=== PATIENT | male | born 1960 | race Caucasian/White ===

== ENCOUNTER 2025-07-05 06:54 | Inpatient (IN) | payer MEDICAID, OTHER ==
[~2025-07-05] VITALS: Ht 182.9 cm; Wt 81.1 kg
--- NOTE | 2025-07-05 07:24 | ED.PDOC ---
GI ASSESSMENT HPI Comments 65 year old male with PMHx ulcerative colitis presents to the ED with a chief complaint of rectal bleeding onset 1 month. Patient states for the past month, he has been experiencing diarrhea with bright red blood as well as dizziness, nausea, vomiting, fatigue. He has had 6 ED [place] the past month[place] [facility] [place] [facility], has been discharged home, advised to follow up with GI specialist, does not have appointment for the next few months. He noticed in the past month he has lost about 40 lbs, symptoms have worsened. Denies fever, chills, headache, blurred vision, numbness/tingling, dysuria, hematuria. No other symptoms or modifying factors present at this time. Chief Complaint: GI Bleed Time Seen by MD: 07:15 Reviewed Notes: Medications, Allergies Allergies: Coded Allergies: NO KNOWN ALLERGIES (Unverified , 07/05/25) Information Source: Patient Mode of Arrival: Ambulatory Timing: Months Duration: Since onset Prehospital treatment: None Quality: Colicky Stool: Blood Streaked, Loose Severity: Moderate Recent: None Recent Hx of: Ulcer Disease Pain Location: Diffuse Associated sign and symptoms: Nausea, Vomiting, Diarrhea, Abdominal Pain, Blood in Stool Past Medical History Past Medical History (Other): ulcerative colitis Family History Family History: Reviewed,noncontributory to illness, No family hx of Cancer, No family hx of DM, No family hx of Heart mercedes, No family hx of HTN, No family hx ofKidney mercedes, No family hx of Liver mercedes, No family hx of Lung mercedes, No family hx of Stroke Social History Smoker: Non-Smoker Alcohol: Denies ETOH Use Drugs: Denies Drug Use Lives In: Home Constitutional: reports: fatigue; denies: chills, diaphoresis, fever, malaise, sweats, weakness, others EENTM: denies: blurred vision, double vision, ear bleeding, ear discharge, ear drainage, ear pain, ear ringing, eye pain, eye redness, hearing loss, mouth pain, mouth swelling, nasal discharge, nose bleeding, nose congestion, nose pain, photophobia, tearing, throat pain, throat swelling, voice changes, others Respiratory: denies: cough, hemoptysis, orthopnea, SOB at rest, shortness of breath, SOB with excertion, stridor, wheezing, others Cardiovascular: denies: chest pain, dizzy spells, diaphoresis, Dyspnea on exertion, edema, irregular heart beat, left arm pain, lightheadedness, palpitations, PND, syncope, others Gastrointestinal: reports: abdominal pain, nausea, rectal bleeding, vomiting; denies: abdomen distended, blood streaked bowels, constipated, diarrhea, dysphagia, difficulty swallowing, hematemesis, melena, poor appetite, poor fluid intake, rectal pain, others Genitourinary: denies: burning, dysuria, flank pain, frequency, hematuria, incontinence, penile discharge, penile sore, pain, testicle pain, testicle swelling, urgency, others Neurological: reports: dizziness; denies: fainting, headache, left sided numbness, left sided weakness, numbness, paresthesia, pre-existing deficit, right sided numbness, right sided weakness, seizure, speech problems, tingling, tremors, weakness, others Musculoskeletal: denies: back pain, gout, joint pain, joint swelling, muscle pain, muscle stiffness, neck pain, others Integumetry: denies: bruises, change in color, change in hair/nails, dryness, laceration, lesions, lumps, rash, wounds, others Allergic/Immunocompromised: denies: Difficulty Healing, Frequent Infections, Hives, Itching, others Hematologic/Lymphatic: denies: anemia, blood clots, easy bleeding, easy bruising, swollen glands, others Endocrine: denies: excessive hunger, excessive sweating, excessive thirst, excessive urination, flushing, intolerance to cold, intolerance to heat, unexplained weight gain, unexplained weight loss, others Psychiatric: denies: anxiety, bipolar disorder, depression, hopeless, panic disorder, schizophrenia, sleepless, suicidal, others All Other Systems: Reviewed and Negative Physical Exam General Appearance: Normal, Other (ashy appearing) HEENT: Normal ENT Inspection, Pharynx Normal, TMs Normal Neck: Full Range of Motion, Non-Tender, Normal, Normal Inspection Respiratory: Chest Non-Tender, Lungs Clear, No Accessory Muscle Use, No Respiratory Distress, Normal Breath Sounds Cardiovascular: No Edema, No JVD, No Murmur, No Gallop, Normal Peripheral Pulses, Regular Rate/Rhythm Breast Exam: Deferred Gastrointestinal: No Organomegaly, Non Tender, No Pulsatile Mass, Normal Bowel Sounds, Soft Genitalia: Deferred Pelvic: Deferred Rectal: Deferred Extremities: No calf tenderness, Normal capillary refill, Normal inspection, Normal range of motion, Non-tender, No pedal edema Musculoskeletal : Apperance: Normal Neurologic: Alert, 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 Was a procedure done?: No GI differential Dx Differential Diagnosis: Diverticular disease, GI hemorrhage, Esophageal Varicies, Stress Ulcer X-Ray, Labs, Meds, VS Vital Signs Date Time Temp Pulse Resp B/P (MAP) Pulse Ox O2 Delivery O2 Flow Rate FiO2 07/05/25 07:58 102 16 98 Room Air* 0 21 07/05/25 07:57 98.0 113 16 136/90 (105) 96 98.0 07/05/25 06:56 98.3 106 20 117/82 96 98.3 Lab Test 07/05/25 07:36 Range/Units White Blood Count 15.7 H 4.4-10.8 10^3/uL Red Blood Count 3.62 L 4.5-5.90 10^6/uL Hemoglobin 10.8 L 13.5-17.5 g/dL Hematocrit 31.9 L 41.0-53.0 % Mean Corpuscular Volume 88.0 80.0-100.0 fL Mean Corpuscular Hemoglobin 29.8 28.0-32.0 pg Mean Corpuscular Hemoglobin Concent 33.9 32.0-36.0 g/dL Red Cell Distribution Width 14.0 11.8-14.3 % Platelet Count 636 H 140-450 10^3/uL Mean Platelet Volume 6.0 L 6.9-10.8 fL Neutrophils (%) (Auto) 64.6 37.0-80.0 % Lymphocytes (%) (Auto) 16.2 10.0-50.0 % Monocytes (%) (Auto) 14.5 H 0.0-12.0 % Eosinophils (%) (Auto) 4.3 0.0-7.0 % Basophils (%) (Auto) 0.4 0.0-2.0 % Neutrophils # (Auto) 10.1 H 1.6-8.6 10 ^3/uL Lymphocytes # (Auto) 2.5 0.4-5.4 10 ^3/uL Monocytes # (Auto) 2.3 H 0-1.3 10 ^3/uL Eosinophils # (Auto) 0.7 0-0.8 10 ^3/uL Basophils # (Auto) 0.1 0-0.2 10 ^3/uL Nucleated Red Blood Cells 0.1 % Sodium Level 133 L 136-145 mmol/L Potassium Level 4.0 3.5-5.1 mmol/L Chloride Level 97 L 98-107 mmol/L Carbon Dioxide Level 27 20-31 mmol/L Anion Gap 9 5-15 Blood Urea Nitrogen 7 L 9-23 mg/dL Creatinine 1.00 0.700-1.30 mg/dL Glomerular Filtration Rate Calc 84 >90 mL/min BUN/Creatinine Ratio 7.0 L 10.0-20.0 Serum Glucose 119 H 74-106 mg/dL Lactic Acid Level 1.2 0.4-2.0 mmol/L Calcium Level 8.5 L 8.7-10.4 mg/dL Current Medications Medications (Trade) Dose Ordered Sig/Savage Route Start Time Stop Time Status Last Admin Sodium Chloride 1,000 ml @ 1,000 mls/hr Q1H ONCE IV 07/05/25 07:30 07/05/25 08:29 DC 07/05/25 08:07 [place] [address] Ph: [phone] DIAGNOSTIC IMAGING Diagnostic Imaging Report : [id number] Signed PATIENT: GEO COLLAZOACCT: [id number] UNIT: [id number] : 1960 LOC: ER ROOM / BED: / AGE / SEX: 65 / M ADM STATUS: REG ER SERVICE 7 ORDERING PHYSICIAN: ROGERIO GOMEZ MD PROCEDURE(s): ABPLIV - CT AB PEL WITH IV CON ONLY REASON: abdominal pain, gi bleed, hx of uc ORDER NUMBER(s): [id number], ACCESSION NUMBER(s): [id number] CLINICAL INFORMATION: 65 years old, Male; abdominal pain, gi bleed, hx of uc. TECHNIQUE: Axial CT images of the abdomen and pelvis were obtained after the uneventful administration of 100 mL Omnipaque 300 IV contrast. Coronal and sagittal reformatted images were obtained, reviewed, and stored. All CT scans at this medical facility are performed using dose modulation techniques as appropriate to a performed exam including the following: Automated exposure control was utilized; adjustment of the MA and/or KV according to patient size; and use of iterative reconstruction technique. CTDIvol = 8.77 mGy DLP = 483.31 mGy-cm COMPARISON: CT ABD/PEL on DOS: 06/06/25, CT CHEST/ABD/PEL W - IV on DOS: 04/30/25 FINDINGS: Lung bases: Nodular opacity in the lingula measures up to 1.5 cm. Liver: Hepatic steatosis. Biliary: Small subcentimeter low-attenuation lesions in the liver, likely cysts, but too small to characterize. Spleen: Unremarkable. Pancreas: Unremarkable. No inflammatory changes, ductal dilatation, or mass identified. Adrenal glands: Left adrenal nodule measures up to 1.9 cm in greatest dimension. Kidneys: No hydronephrosis or mass. Aorta/Vascular: Scattered atherosclerotic calcification. No abdominal aortic aneurysm. Lymph Nodes: Periaortic lymph node measures up to 1.2 x 0.9 cm with additional smaller para-aortic and interaortocaval lymph nodes seen. Bowel/mesentery: Nonspecific nondilated fluid-filled small bowel loops. No small bowel obstruction. No free air or free fluid. Appendix is visualized and appears unremarkable. There is wall thickening and inflammatory stranding involving the ascending colon, hepatic flexure, transverse colon, splenic flexure, descending colon, and rectosigmoid colon, likely colitis. There is associated vascular engorgement. Pelvic organs: Prostate is not definitely visualized. may be severely attenuated. Bladder: Unremarkable. No mass. Abdominal wall: No mass or hernia. Bones: No acute fracture or focal intraosseous lesion. IMPRESSION: 1. Findings consistent with colitis, may be infectious or inflammatory in natu re. Correlate with clinical findings. 2. Nonspecific nondilated fluid-filled small bowel loops. Findings may be seen with ileus or enteritis in the appropriate clinical setting. No small bowel obstruction. 3. Left adrenal nodule is indeterminate. Appears grossly stable compared to recent exams. Based on size, 12 month follow-up CT adrenal mass protocol could be obtained per ACR white paper on incidentally detected adrenal masses. 4. Nodular opacity in the left lingula appears more conspicuous compared to prior exams, may be due to nodular scarring. Pulmonary nodule not excluded. 3- month follow-up CT chest could be considered to demonstrate stability or resolution of this finding. 5. Mildly prominent para-aortic lymph nodes, possibly reactive, slightly more conspicuous compared to previous exams. Attention on follow-up imaging recommended. ATED BY: MANDO SCANLON DO DICTATED DATE/TIME: 07/05/25918 SIGNED BY: MANDO SCANLON DO SIGNED DATE/TIME: 07/05/25918 CC: Time of 1ST Reevaluation: 07:45 Reevaluation 1ST: Unchanged Patient Education/Counseling: Diagnosis, Treatment, Prognosis Family Education/Counseling: No Family Present SEPSIS Sepsis Screen Date sepsis recognized/suspect: Jul 05, 2025 Time Sepsis recognized/suspect: 657 Recent Procedure: No On Antibiotic Therapy: No Respiratory Rate >20: No Heart Rate >90: No Temp<36 C (96.8 F) or >38.3 C: No SBP <90 or MAP <65 mmHG: No New Acute Mental Status Change: No Is the patient on CPAP, BIPAP,: No Physician Orders Ct Ab Pel With Iv Con Only (07/05/25 07:18) Vital Signs Date Time Temp Pulse Resp B/P (MAP) Pulse Ox O2 Delivery O2 Flow Rate FiO2 07/05/25 07:58 102 16 98 Room Air* 0 21 07/05/25 07:57 98.0 113 16 136/90 (105) 96 98.0 07/05/25 06:56 98.3 106 20 117/82 96 98.3 Laboratory Tests Test 07/05/25 07:36 Lactic Acid Level 1.2 mmol/L (0.4-2.0) White Blood Count 15.7 10^3/uL (4.4-10.8) H Medications Medications Dose Ordered Sig/Savage Route Start Time Stop Time Status Last Admin Dose Admin Sodium Chloride 1,000 ml @ 1,000 mls/hr Q1H ONCE IV 07/05/25 07:30 07/05/25 08:29 DC 07/05/25 08:07 Departure 1 Departure Time of Disposition: 10:14 (Patient presented with abdominal pain that was concerning for possible appendicits, gastritis, cholecystitis, colitis, gastroenteritis, sbo, or orther possible surgical emergency. Data: 1. I ordered and reviewed the result of at least 3 labs including a CBC, BMP, and Urinalysis. 2. I independently interpreted the following tests: CT Abdomen and Pelvis is concerning for diffuse colitis .Risk:This patient has a high risk of morbidity due to further diagnostic testing or treatment and may suffer from an acute abdominal process disorder. Workup reveals diffuse colitis and suspected sepsis and patient should be admitted for further workup. and possible expert consultation. ) Impression: Primary Impression: Colitis Additional Impressions: Intractable abdominal pain Ulcerative colitis Suspected sepsis Disposition: ADMITTED INPATIENT Admit to: Tele Condition: Guarded Critical Care Note Critical Care Time?: Yes Critical care comment: Suspected sepsis Authorized and Performed by: Rogerio Gomez MD Total critical care time: Approximately 39 minutes Due to a high probability of clinically significant, life threatening deterioration, the patient required my highest level of preparedness to intervene emergently and I personally spent this critical care time directly and personally managing the patient. This critical care time included obtaining a hi story; examining the patient; pulse oximetry; ordering and review of studies; arranging urgent treatment with development of a management plan; evaluation of patient's response to treatment; frequent reassessment; and, discussions with other providers. This critical care time was performed to assess and manage the high probability of imminent, life-threatening deterioration that could result in multi-organ failure. It was exclusive of separately billable procedures and treating other patients and teaching time. Please see my other sections and the rest of the note for further information on patient assessment and treatment. Stability Stability form required: No Heart Score Heart Score: Heart Score Response (Comments) Value History N/A 0 EKG N/A 0 Age N/A 0 Risk Factors N/A 0 Troponin N/A 0 Total 0 I personally scribed for ROGERIO GOMEZ MD ([email or web address]) on 07/05/25 at 07:24. Electronically submitted by Eliane Cisse ([email or web address]). I personally scribed for ROGERIO GOMEZ MD ([email or web address]) on 07/05/25 at 07:37. Electronically submitted by Eliane Cisse ([email or web address]). I personally scribed for ROGERIO GOMEZ MD ([email or web address]) on 07/05/25 at 09:47. Electronically submitted by Eliane Cisse ([email or web address]). ROGERIO GOMEZ MD Jul 05, 2025 07:24
[2025-07-05 07:55] LABS: Hematocrit 31.9 % (41.0-53.0); Hemoglobin 10.8 g/dL (13.5-17.5); Mean Corpuscular Hemoglobin 29.8 pg (28.0-32.0); Mean Corpuscular Volume 88.0 fL (80.0-100.0); Nucleated Red Blood Cells % 0.1 %
[2025-07-05 07:58] VITALS: PULSE 102; RESP 16; O2SAT 98
[2025-07-05 08:04] LABS: Potassium 4.0 mmol/L (3.5-5.1)
[2025-07-05 08:05] LABS: Anion Gap 9 (5-15); Carbon Dioxide 27 mmol/L (20-31)
[2025-07-05] MEDS: SODIUM CHLORIDE 0.9% 1,000 ML IV ONE (08:07)
[2025-07-05 08:08] LABS: Calcium 8.5 mg/dL (8.7-10.4); Chloride 97 mmol/L (98-107); Sodium 133 mmol/L (136-145)
[2025-07-05 08:10] LABS: BUN/Creatinine Ratio 7.0 (10.0-20.0)
[2025-07-05 08:12] LABS: Blood Urea Nitrogen 7 mg/dL (9-23); Glucose 119 mg/dL (74-106)
--- NOTE | 2025-07-05 09:21 | DVH ---
CLINICAL INFORMATION: 65 years old, Male; abdominal pain, gi bleed, hx of uc. TECHNIQUE: Axial CT images of the abdomen and pelvis were obtained after the uneventful administration of 100 mL Omnipaque 300 IV contrast. Coronal and sagittal reformatted images were obtained, reviewed, and stored. All CT scans at this medical facility are performed using dose modulation techniques as appropriate to a performed exam including the following: Automated exposure control was utilized; adjustment of the MA and/or KV according to patient size; and use of iterative reconstruction technique. CTDIvol = 8.77 mGy DLP = 483.31 mGy-cm COMPARISON: CT ABD/PEL on DOS: 06/06/25, CT CHEST/ABD/PEL W - IV on DOS: 04/30/25 FINDINGS: Lung bases: Nodular opacity in the lingula measures up to 1.5 cm. Liver: Hepatic steatosis. Biliary: Small subcentimeter low-attenuation lesions in the liver, likely cysts, but too small to characterize. Spleen: Unremarkable. Pancreas: Unremarkable. No inflammatory changes, ductal dilatation, or mass identified. Adrenal glands: Left adrenal nodule measures up to 1.9 cm in greatest dimension. Kidneys: No hydronephrosis or mass. Aorta/Vascular: Scattered atherosclerotic calcification. No abdominal aortic aneurysm. Lymph Nodes: Periaortic lymph node measures up to 1.2 x 0.9 cm with additional smaller para-aortic and interaortocaval lymph nodes seen. Bowel/mesentery: Nonspecific nondilated fluid-filled small bowel loops. No small bowel obstruction. No free air or free fluid. Appendix is visualized and appears unremarkable. There is wall thickening and inflammatory stranding involving the ascending colon, hepatic flexure, transverse colon, splenic flexure, descending colon, and rectosigmoid colon, likely colitis. There is associated vascular engorgement. Pelvic organs: Prostate is not definitely visualized. may be severely attenuated. Bladder: Unremarkable. No mass. Abdominal wall: No mass or hernia. Bones: No acute fracture or focal intraosseous lesion. IMPRESSION: 1. Findings consistent with colitis, may be infectious or inflammatory in nature. Correlate with clinical findings. 2. Nonspecific nondilated fluid-filled small bowel loops. Findings may be seen with ileus or enteritis in the appropriate clinical setting. No small bowel obstruction. 3. Left adrenal nodule is indeterminate. Appears grossly stable compared to recent exams. Based on size, 12 month follow-up CT adrenal mass protocol could be obtained per ACR white paper on incidentally detected adrenal masses. 4. Nodular opacity in the left lingula appears more conspicuous compared to prior exams, may be due to nodular scarring. Pulmonary nodule not excluded. 3- month follow-up CT chest could be considered to demonstrate stability or resolution of this finding. 5. Mildly prominent para-aortic lymph nodes, possibly reactive, slightly more conspicuous compared to previous exams. Attention on follow-up imaging recommended.
[2025-07-05] MEDS ORDERED: MORPHINE SULFATE INJ 2 MG/ml SYRG IV PRN (12:00)
[2025-07-05] MEDS ORDERED: DOCUSATE SOD 100 MG CAP PO PRN (12:00)
[2025-07-05] MEDS ORDERED: ONDANSETRON HCL 4 MG/2 ML VIAL IV PRN (12:00)
[2025-07-05] MEDS: SODIUM CHLORIDE 0.9% 1,000 ML IV SCH (12:00)
--- NOTE | 2025-07-05 12:20 | DVHHP2 ---
History of Present Illness Reason for Visit: GI bleed History of Present Illness Wiliam Hudson is a 65-year-old male with past medical history of colitis, anemia, and prostate cancer who came to the hospital for abdominal pain and blood in stool. Patient states he has been experiencing abdominal pain, diarrhea, and blood in stool for about 2 months. He has been seen at [facility], and Dr. Ambriz who referred him to [facility]. He went to [place] and was told to follow up as an outpatient. However, he could not get an appointment until next year. His symptoms continued to worsen prompting him to come to the ER. Patient also states that he has lost about 40 pounds in the last month. GI: Diverticulosis, GI bleed, Inflam bowel disease (colitis) Heme/Onc: Cancer (prostate) Past Surgical History: Other (prostate, right leg) Smoke: No ALCOHOL: none Drugs: None Lives: with Family Domestic Violence: Neg Review of Systems Constitutional: No: Fever, Chills, Sweats, Weakness, Malaise, Other Eyes: No: Pain, Vision change, Conjunctivae inflammation, Eyelid inflammation, Other, Redness ENT: No: Ear pain, Ear discharge, Nose pain, Nose discharge, Nose congestion, Mouth pain, Mouth swelling, Throat pain, Throat swelling, Other Respiratory: No: Cough, Dry, Shortness of breath, SOB with excertion, Wheezing, Hemoptysis, Pleuritic Pain, Sputum, Wheezing, Other Cardiovascular: No: Chest Pain, Palpitations, Orthopnea, Paroxysmal Noc. Dyspnea, Edema, Lt Headedness, Other Gastrointestinal: Vomiting, Abdominal Pain, Diarrhea, Melena; No: Nausea, Constipation, Hematochezia, Other Genitourinary: No Dysuria, No Frequency, No Incontinence, No Hematuria, No Retention, No Other Musculoskeletal: No: other, neck pain, shoulder pain, arm pain, back pain, hand pain, leg pain, foot pain Skin: No: Rash, Lesions, Jaundice, Bruising, Other Neurological: No: Weakness, Numbness, Incoordination, Change in speech, Confusion, Seizures, Other Allergies: Coded Allergies: NO KNOWN ALLERGIES (Unverified , 07/05/25) Exam Vital Signs Vital Signs Date Time Temp Pulse Resp B/P (MAP) Pulse Ox O2 Delivery O2 Flow Rate FiO2 07/05/25 07:58 102 16 98 Room Air* 0 21 07/05/25 07:57 98.0 136/90 (105) 98.0 General Appearance: Alert, Oriented X3, Cooperative, moderate distress HEENT: Atraumatic, PERRLA Respiratory: Clear to auscultation, Normal air movement Cardiovascular: Regular rate, Normal S1, Normal S2, No murmurs Abdominal: Normal bowel sounds, Soft, Other Extremities: No clubbing, No cyanosis, No edema, Normal pulses Skin: No rashes, No breakdown, No significant lesion Neuro: Normal gait, Normal speech, Strength at 5/5 X4 ext Psych/Mental Status: Mental status NL, Mood NL Labs/Xrays Labs Test 07/05/25 07:36 Range/Units White Blood Count 15.7 H 4.4-10.8 10^3/uL Red Blood Count 3.62 L 4.5-5.90 10^6/uL Hemoglobin 10.8 L 13.5-17.5 g/dL Hematocrit 31.9 L 41.0-53.0 % Mean Corpuscular Volume 88.0 80.0-100.0 fL Mean Corpuscular Hemoglobin 29.8 28.0-32.0 pg Mean Corpuscular Hemoglobin Concent 33.9 32.0-36.0 g/dL Red Cell Distribution Width 14.0 11.8-14.3 % Platelet Count 636 H 140-450 10^3/uL Mean Platelet Volume 6.0 L 6.9-10.8 fL Neutrophils (%) (Auto) 64.6 37.0-80.0 % Lymphocytes (%) (Auto) 16.2 10.0-50.0 % Monocytes (%) (Auto) 14.5 H 0.0-12.0 % Eosinophils (%) (Auto) 4.3 0.0-7.0 % Basophils (%) (Auto) 0.4 0.0-2.0 % Neutrophils # (Auto) 10.1 H 1.6-8.6 10 ^3/uL Lymphocytes # (Auto) 2.5 0.4-5.4 10 ^3/uL Monocytes # (Auto) 2.3 H 0-1.3 10 ^3/uL Eosinophils # (Auto) 0.7 0-0.8 10 ^3/uL Basophils # (Auto) 0.1 0-0.2 10 ^3/uL Nucleated Red Blood Cells 0.1 % Sodium Level 133 L 136-145 mmol/L Potassium Level 4.0 3.5-5.1 mmol/L Chloride Level 97 L 98-107 mmol/L Carbon Dioxide Level 27 20-31 mmol/L Anion Gap 9 5-15 Blood Urea Nitrogen 7 L 9-23 mg/dL Creatinine 1.00 0.700-1.30 mg/dL Glomerular Filtration Rate Calc 84 >90 mL/min BUN/Creatinine Ratio 7.0 L 10.0-20.0 Serum Glucose 119 H 74-106 mg/dL Lactic Acid Level 1.2 0.4-2.0 mmol/L Calcium Level 8.5 L 8.7-10.4 mg/dL TECHNIQUE: Axial CT images of the abdomen and pelvis were obtained FINDINGS: Lung bases: Nodular opacity in the lingula measures up to 1.5 cm. Liver: Hepatic steatosis. Biliary: Small subcentimeter low-attenuation lesions in the liver, likely cysts, but too small to characterize. Spleen: Unremarkable. Pancreas: Unremarkable. No inflammatory changes, ductal dilatation, or mass identified. Adrenal glands: Left adrenal nodule measures up to 1.9 cm in greatest dimension. Kidneys: No hydronephrosis or mass. Aorta/Vascular: Scattered atherosclerotic calcification. No abdominal aortic aneurysm. Lymph Nodes: Periaortic lymph node measures up to 1.2 x 0.9 cm with additional smaller para-aortic and interaortocaval lymph nodes seen. Bowel/mesentery: Nonspecific nondilated fluid-filled small bowel loops. No small bowel obstruction. No free air or free fluid. Appendix is visualized and appears unremarkable. There is wall thickening and inflammatory stranding involving the ascending colon, hepatic flexure, transverse colon, splenic flexure, descending colon, and rectosigmoid colon, likely colitis. There is associated vascular engorgement. Pelvic organs: Prostate is not definitely visualized. may be severely attenuated. Bladder: Unremarkable. No mass. Abdominal wall: No mass or hernia. Bones: No acute fracture or focal intraosseous lesion. IMPRESSION: 1. Findings consistent with colitis, may be infectious or inflammatory in nature. Correlate with clinical findings. 2. Nonspecific nondilated fluid-filled small bowel loops. Findings may be seen with ileus or enteritis in the appropriate clinical setting. No small bowel obstruction. 3. Left adrenal nodule is indeterminate. Appears grossly stable compared to recent exams. Based on size, 12 month follow-up CT adrenal mass protocol could be obtained per ACR white paper on incidentally detected adrenal masses. 4. Nodular opacity in the left lingula appears more conspicuous compared to prior exams, may be due to nodular scarring. Pulmonary nodule not excluded. 3- month follow-up CT chest could be considered to demonstrate stability or resolution of this finding. 5. Mildly prominent para-aortic lymph nodes, possibly reactive, slightly more conspicuous compared to previous exams. Attention on follow-up imaging recommended. SEPSIS Sepsis Screen Date sepsis recognized/suspect: Jul 05, 2025 Time Sepsis recognized/suspect: 657 Recent Procedure: No On Antibiotic Therapy: No Respiratory Rate >20: No Heart Rate >90: No Temp<36 C (96.8 F) or >38.3 C: No SBP <90 or MAP <65 mmHG: No New Acute Mental Status Change: No Is the patient on CPAP, BIPAP,: No Physician Orders Ct Ab Pel With Iv Con Only (07/05/25 07:18) Notify Md If Map <65 Or Bp<90 (07/05/25 10:15) If Map<65 Start Vasopressor (07/05/25 10:15) Sepsis Reassesment After Fluid (07/05/25 11:15) Blood Culture (07/05/25 10:15) Admit (07/05/25 11:58) Code Status (07/05/25 11:58) 0.9% Ns 1000 Ml (07/05/25 12:00) Hydrocodone-Acet 5/325mg Tab ([place] 5/32 (07/05/25 12:00) Ondansetron Hcl (Zofran) (07/05/25 12:00) Docusate Sodium Capsule (Colace Capsule) (07/05/25 12:00) Complete Blood Count (07/06/25 04:00) Comprehensive Metabolic Panel (07/06/25 04:00) Condition: Serious (07/05/25 11:58) Acetaminophen Tablet (Tylenol Tablet) (07/05/25 12:00) Clear Liq Diet (07/05/25 Lunch) Morphine Sulfate Injection (07/05/25 12:00) * Gi Dvh Certified Physician Assistant (07/05/25 11:58) Vital Signs Date Time Temp Pulse Resp B/P (MAP) Pulse Ox O2 Delivery O2 Flow Rate FiO2 07/05/25 07:58 102 16 98 Room Air* 0 21 07/05/25 07:57 98.0 113 16 136/90 (105) 96 98.0 07/05/25 06:56 98.3 106 20 117/82 96 98.3 Laboratory Tests Test 07/05/25 07:36 Lactic Acid Level 1.2 mmol/L (0.4-2.0) White Blood Count 15.7 10^3/uL (4.4-10.8) H Medications Medications Dose Ordered Sig/Savage Route Start Time Stop Time Status Last Admin Dose Admin Sodium Chloride 1,000 ml @ 1,000 mls/hr Q1H ONCE IV 07/05/25 07:30 07/05/25 08:29 DC 07/05/25 08:07 1,000 MLS/HR Assessment/Plan Assessment/Plan Assessment: Ulcerative colitis, Rectal bleeding, Adrenal nodule, Enlarged lymph nodes, Plan: Admit to Med-Surg, GI consult, Clear liquid diet, Antiemetics, CEA, CA19, AFP labs, Send stool for ova/parasites, occult blood, culture, WBC, Pain management, IV hydration, IV antibiotics, Mange/Monitor H&H closely, Plan discussed with: Patient My Orders Orders - TANNER SUÁREZ DIRECTOR MEDIA Procedure Category Date Status Time Admit ADMIT 07/05/25 Transmitted 11:58 Code Status CODE 07/05/25 Transmitted 11:58 0.9% Ns 1000 Ml PHA 07/05/25 Transmitted 12:00 Hydrocodone-Acet PHA 07/05/25 Transmitted 5/325mg Tab ([place] 12:00 Ondansetron Hcl PHA 07/05/25 Transmitted (Zofran) 12:00 Docusate Sodium PHA 07/05/25 Transmitted Capsule (Colace 12:00 Complete Blood Count LAB 07/06/25 Verified 04:00 Comprehensive LAB 07/06/25 Verified Metabolic Panel 04:00 Condition: Serious MARIA LUISA 07/05/25 Transmitted 11:58 Acetaminophen Tablet PHA 07/05/25 Transmitted (Tylenol Tablet) 12:00 Clear Liq Diet DIET 07/05/25 Transmitted Lunch Morphine Sulfate PHA 07/05/25 Transmitted Injection 12:00 * Gi Dvh Certified Physician Assistant CONS 07/05/25 Transmitted 11:58 Date of Service: Jul 05, 2025 Billing Provider: TANNER SUÁREZ Common Visit Codes: [id number] INP/OBS CARE (HIGH) TANNER SUÁREZ Jul 05, 2025 12:20
[2025-07-05] MEDS: LACTATED RINGER'S 2,350 ML IV ONE (14:04)
[2025-07-05] MEDS: ceFAZolin 2 GM/D5W50ml 50 ML IV ONE (14:06)
[2025-07-05 15:30] LABS: Alanine Aminotransferase 20.0 U/L (7-40); Alkaline Phosphatase 65.0 U/L (46-116); Total Protein 5.9 g/dL (5.7-8.2)
[2025-07-05 15:31] LABS: Albumin 3.1 g/dL (3.2-4.8); Bilirubin, Direct 0.1 mg/dL (<0.3); Bilirubin, Total 0.2 mg/dL (0.2-1.0)
--- NOTE | 2025-07-05 16:29 | DVHCONRES ---
Date Seen: Jul 05, 2025 Resident Creating Document: RACHEL REILLY RESIDENT Referring Physician KAMINI ROJAS History of Present Illness 65-year-old male with ulcerative colitis presented to the ED with a chief complaint of bloody stool for the past 1 month. Patient reports that he has been experiencing fresh red bloody diarrhea for the past 1 month, 10-20 episodes a day, and that he has to go to the bathroom whenever he eats or drinks anything. He reports 40 lb weight loss in the past month. Associated symptoms include fever, chills, night sweats. Reports right-sided abdominal pain. Also reports internal hemorrhoids. Patient used to see Dr. 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 Patient has a appointment with Alyssa Ruth next year. Last colonoscopy 3 years back Patient seen and examined. Right lower quadrant tenderness. Allergies: Coded Allergies: NO KNOWN ALLERGIES (Unverified , 07/05/25) Current Medications Current Medications Medications (Trade) Dose Ordered Sig/Savage Route PRN Reason Start Time Stop Time Status Last Admin Sodium Chloride 1,000 ml @ 75 mls/hr [id number] IV 07/05/25 12:00 Acetaminophen/ Hydrocodone Bitart ([place] 5/325MG Tab) 1 tab Q4HP PRN PO MODERATE PAIN (4-6 PAIN SCALE) 07/05/25 12:00 Ondansetron HCl (Zofran) 4 mg Q4HP PRN IV NAUSEA / VOMITING 07/05/25 12:00 Docusate Sodium (Colace Capsule) 100 mg BIDPRN PRN PO FOR CONSTIPATION 07/05/25 12:00 Acetaminophen (Tylenol Tablet) 650 mg Q6HP PRN PO PAIN SCALE 1-3 OR TEMP>100.4 07/05/25 12:00 Morphine Sulfate 2 mg Q4HPRN PRN IV SEVERE PAIN (7-10 PAIN SCALE) 07/05/25 12:00 Ceftriaxone Sodium 50 ml @ 100 mls/hr DAILY@09 IV 07/06/25 09:00 Metronidazole 100 ml @ 100 mls/hr Q8HR IV 07/05/25 22:00 Vital Signs Vital Signs Date Time Temp Pulse Resp B/P (MAP) Pulse Ox O2 Delivery O2 Flow Rate FiO2 07/05/25 16:06 98.6 101 16 118/77 (91) 98 98.6 07/05/25 07:58 Room Air* 0 21 Physical Exam Patient lying in bed, in mild distress General: Sick appearing, afebrile, palor, mucosae are moist Cardiovascular: Regular S1 and S2. No murmurs, gallops or rubs. No JVD elevation. No pedal edema Respiratory: Normal B/L air entry on room air. Clear lung sounds on auscultation Abdomen: Soft, right lower tenderness, nondistended, normoactive bowel sounds, no rebound tenderness, no organomegaly, no masses Genitourinary: Deferred MSK/skin: Mobilizes 4 limbs. Skin is dry and warm Neurological: No motor, no sensitive deficits, normal speech. Pupils are isocoric and reactive. Psych/Mental Status: A/Ox3 Labs/Diagnostic Data Labs Test 07/05/25 10:40 07/05/25 07:36 Range/Units White Blood Count 15.7 H 4.4-10.8 10^3/uL Red Blood Count 3.62 L 4.5-5.90 10^6/uL Hemoglobin 10.8 L 13.5-17.5 g/dL Hematocrit 31.9 L 41.0-53.0 % Mean Corpuscular Volume 88.0 80.0-100.0 fL Mean Corpuscular Hemoglobin 29.8 28.0-32.0 pg Mean Corpuscular Hemoglobin Concent 33.9 32.0-36.0 g/dL Red Cell Distribution Width 14.0 11.8-14.3 % Platelet Count 636 H 140-450 10^3/uL Mean Platelet Volume 6.0 L 6.9-10.8 fL Neutrophils (%) (Auto) 64.6 37.0-80.0 % Lymphocytes (%) (Auto) 16.2 10.0-50.0 % Monocytes (%) (Auto) 14.5 H 0.0-12.0 % Eosinophils (%) (Auto) 4.3 0.0-7.0 % Basophils (%) (Auto) 0.4 0.0-2.0 % Neutrophils # (Auto) 10.1 H 1.6-8.6 10 ^3/uL Lymphocytes # (Auto) 2.5 0.4-5.4 10 ^3/uL Monocytes # (Auto) 2.3 H 0-1.3 10 ^3/uL Eosinophils # (Auto) 0.7 0-0.8 10 ^3/uL Basophils # (Auto) 0.1 0-0.2 10 ^3/uL Nucleated Red Blood Cells 0.1 % Sodium Level 133 L 136-145 mmol/L Potassium Level 4.0 3.5-5.1 mmol/L Chloride Level 97 L 98-107 mmol/L Carbon Dioxide Level 27 20-31 mmol/L Anion Gap 9 5-15 Blood Urea Nitrogen 7 L 9-23 mg/dL Creatinine 1.00 0.700-1.30 mg/dL Glomerular Filtration Rate Calc 84 >90 mL/min BUN/Creatinine Ratio 7.0 L 10.0-20.0 Serum Glucose 119 H 74-106 mg/dL Lactic Acid Level 1.2 0.4-2.0 mmol/L Calcium Level 8.5 L 8.7-10.4 mg/dL Total Bilirubin 0.2 0.2-1.0 mg/dL Direct Bilirubin 0.1 <0.3 mg/dL Aspartate Amino Transferase (AST) 17 13-40 U/L Alanine Aminotransferase (ALT) 20 7-40 U/L Alkaline Phosphatase 65 46-116 U/L Total Protein 5.9 5.7-8.2 g/dL Albumin 3.1 L 3.2-4.8 g/dL Carcinoembryonic Antigen < 0.50 <=5.0 ng/mL Assessment Acute ulcerative colitis flare-up Likely superimposed infection Sepsis secondary to above Ruled out C diff colitis Plan: Given the acute colitis, we recommend ruling out C diff. continue IV ceftriaxone and metronidazole, IV fluids, keep NPO except ice chips and medications. Send stool for C diff, stool culture, stool WBC Follow up with the ESR and CRP Patient will benefit from colonoscopy once the acute phase passes Started mesalamine 800 mg PO TID Started Solu-Medrol 40 mg Q 8 hourly Strict I&Os and pantoprazole 40 mg IV b.i.d. We will continue to follow up Thank you for consulting GI Plan discussed with patient in which all questions have been answered Case discussed with Dr. Harper Plan discussed with: Patient RACHEL REILLY RESIDENT Jul 05, 2025 16:29
[2025-07-05 18:21] VITALS: BP 112/63; PULSE 112; RESP 19; TEMP 99.3; O2SAT 95
[2025-07-05] MEDS: ACETAMINOPHEN 325 MG TAB PO PRN (18:45)
[2025-07-05] MEDS: methylPREDNISolone SOD SUCC 40 MG/ML VL IV SCH (18:46)
[2025-07-05] MEDS: PANTOPRAZOLE 40 MG/10 ML VIAL INJ IV SCH (18:48)
[2025-07-05] MEDS: CALCIUM GLUC 1,000mg/50ml-NS 50 ML IV ONE (19:04)
[2025-07-05 19:05] LABS: Urine Protein, UAD TRACE (Negative)
[2025-07-05 20:00] VITALS: PULSE 90; RESP 18; O2SAT 95
[2025-07-05 21:00] VITALS: BP 97/60; PULSE 98; RESP 19; TEMP 98.3; O2SAT 95
[2025-07-05] MEDS ORDERED: PRE5T PO (21:16)
[2025-07-05] MEDS ORDERED: ALBU108A5 PO (21:16)
[2025-07-05] MEDS ORDERED: CHOL20003 PO (21:16)
[2025-07-05] MEDS ORDERED: LORA-1121 PO (21:16)
[2025-07-05] MEDS ORDERED: HYDR-3682 PO (21:16)
[2025-07-05] MEDS: MESALAMINE 400mg Delayed Release Cap PO SCH (22:00)
[2025-07-05 22:11] VITALS: BP 109/76; PULSE 90; RESP 18; TEMP 98.2; O2SAT 95
[2025-07-05] MEDS: HYDROcodone-ACET 5/325MG TAB PO PRN (23:58)
[2025-07-06] VITALS (7 sets, daily range): BP systolic 100–123; BP diastolic 66–83; PULSE 70–95; RESP 16–20; TEMP 97.4–98.6; O2SAT 94–99
[2025-07-06 05:29] LABS: Hemoglobin 10.0 g/dL (13.5-17.5)
[2025-07-06 05:31] LABS: Hematocrit 29.8 % (41.0-53.0); Mean Corpuscular Hemoglobin 29.5 pg (28.0-32.0); Mean Corpuscular Volume 87.8 fL (80.0-100.0); Nucleated Red Blood Cells % 0.1 %
[2025-07-06 05:54] LABS: Alanine Aminotransferase 11 U/L (7-40); Alkaline Phosphatase 64 U/L (46-116); Anion Gap 13 (5-15); BUN/Creatinine Ratio 9.1 (10.0-20.0); Bilirubin, Total 0.4 mg/dL (0.2-1.0); Carbon Dioxide 23 mmol/L (20-31); Chloride 99 mmol/L (98-107); Potassium 4.0 mmol/L (3.5-5.1); Total Protein 6.0 g/dL (5.7-8.2)
[2025-07-06 06:14] LABS: Albumin 3.0 g/dL (3.2-4.8); Blood Urea Nitrogen 8 mg/dL (9-23); Calcium 8.1 mg/dL (8.7-10.4); Glucose 159 mg/dL (74-106); Sodium 135 mmol/L (136-145)
[2025-07-06] MEDS ORDERED: BUDE3CAP18 PO (12:22)
[2025-07-06] MEDS ORDERED: DICY20TA PO (12:22)
[2025-07-06] MEDS ORDERED: MESA1.2T PO (12:22)
[2025-07-06] MEDS ORDERED: TOFA10TA PO (12:22)
[2025-07-06] MEDS ORDERED: FENO54TA4 PO (12:24)
--- NOTE | 2025-07-06 15:08 | DVHPN2 ---
Progress Note Date Seen: Jul 06, 2025 Resident Creating Document: RACHEL REILLY RESIDENT Medical Necessity Reason Pt with a Central, PICC or Fol: No Subjective Review of Systems 65-year-old male with ulcerative colitis presented to the ED with a chief complaint of bloody stool for the past 1 month. Patient reports that he has been experiencing fresh red bloody diarrhea for the past 1 month, 10-20 episodes a day, and that he has to go to the bathroom whenever he eats or drinks anything. He reports 40 lb weight loss in the past month. Associated symptoms include fever, chills, night sweats. Reports right-sided abdominal pain. Also reports internal hemorrhoids. Patient used to see Dr. 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 Patient has a appointment with Alyssa Ruth next year. Last colonoscopy 3 years back 07/05 - Patient seen and examined. Right lower quadrant tenderness. 07/06-patient seen and examined, reports feeling better, 3 episodes of loose watery stools, blood at the end of the stool. WBC trending down. Objective vital signs Vital Sign Date Time Temp Pulse Resp B/P (MAP) Pulse Ox O2 Delivery O2 Flow Rate FiO2 07/06/25 13:00 97.9 92 19 118/73 (88) 97 97.9 07/06/25 08:00 Room Air* 0 21 Total Intake and Output 07/05/25 07/05/25 07/06/25 15:00 23:00 07:00 Intake Total 100 ml 200 ml Output Total 0 ml Balance 100 ml 200 ml medications Current Medications Medications Dose Ordered Sig/Savage Route Start Time Stop Time Status Last Admin Dose Admin Sodium Chloride 1,000 ml @ 75 mls/hr [id number] IV 07/05/25 12:00 Hold 07/06/25 00:43 75 MLS/HR Acetaminophen/ Hydrocodone Bitart 1 tab Q4HP PRN PO 07/05/25 12:00 07/06/25 12:30 1 TAB Ondansetron HCl 4 mg Q4HP PRN IV 07/05/25 12:00 Acetaminophen 650 mg Q6HP PRN PO 07/05/25 12:00 07/06/25 05:48 650 MG Morphine Sulfate 2 mg Q4HPRN PRN IV 07/05/25 12:00 Ceftriaxone Sodium 50 ml @ 100 mls/hr DAILY@09 IV 07/06/25 09:00 07/06/25 08:45 100 MLS/HR Metronidazole 100 ml @ 100 mls/hr Q8HR IV 07/05/25 22:00 07/06/25 14:07 100 MLS/HR Mesalamine 800 mg TID PO 07/05/25 22:00 07/06/25 14:07 800 MG Methylprednisolone Sodium Succinate 40 mg Q8HR IV 07/05/25 17:15 07/06/25 14:07 40 MG Pantoprazole Sodium 40 mg BID IV 07/05/25 17:15 07/06/25 08:44 40 MG Dextrose/Sodium Chloride 1,000 ml @ 100 mls/hr Q10H IV 07/06/25 13:45 Examination Patient lying in bed, in mild distress General: Sick appearing, afebrile, palor, mucosae are moist Cardiovascular: Regular S1 and S2. No murmurs, gallops or rubs. No JVD elevation. No pedal edema Respiratory: Normal B/L air entry on room air. Clear lung sounds on auscultation Abdomen: Soft, right lower tenderness, nondistended, normoactive bowel sounds, no rebound tenderness, no organomegaly, no masses Genitourinary: Deferred MSK/skin: Mobilizes 4 limbs. Skin is dry and warm Neurological: No motor, no sensitive deficits, normal speech. Pupils are isocoric and reactive. Psych/Mental Status: A/Ox3 laboratory and microbiology Laboratory Tests 07/06/25 04:50 Test 07/06/25 04:50 Range/Units Serum Glucose 159 H 74-106 mg/dL Microbiology Date/Time Source Procedure Growth Status 07/05/25 10:40 Blood Blood Culture - Preliminary NO GROWTH AFTER 24 HOURS OF INCUBATION. Resulted Labs and/or images reviewed: Labs reviewed by me, Image(s) reviewed by me Problem List/Assessment/Plan Problem List/Assessment/Plan Acute ulcerative colitis flare-up Likely superimposed infection Sepsis secondary to above Anemia likely normocytic due to chronic disease Ruled out C diff colitis Moderate protein calorie malnutrition Plan: Diet advanced to clear liquids, advanced slowly as tolerated. Given the acute colitis, we recommend ruling out C diff. continue IV ceftriaxone and metronidazole, IV fluids Stool WBC positive. Stool occult positive. Follow up with stool for C diff, stool culture Trend CRP tomorrow Patient will benefit from colonoscopy as outpatient once the acute phase passes Started mesalamine 800 mg PO TID Started Solu-Medrol 40 mg Q 8 hourly Strict I&Os and pantoprazole 40 mg IV b.i.d. We will continue to follow up Thank you for consulting GI Plan discussed with patient in which all questions have been answered Case discussed with Dr. Harper Plan discussed with: Patient My Orders My Orders Orders - RACHEL REILLY Procedure Category Date Status Time Mesalamine Dr Capsule PHA 07/05/25 In Process (Delzicol Delayed 22:00 Methylprednisolone PHA 07/05/25 In Process Sod Succ (Solu Medrol 17:15 Clostridium Difficile CONNER 07/05/25 In Process Toxin 17:02 Npo Except For MARIA LUISA 07/05/25 In Process Medications 17:02 Npo Except Ice Chips MARIA LUISA 07/05/25 In Process 17:02 Communication Order ORDERS 07/05/25 Transmitted 17:02 Pantoprazole PHA 07/05/25 In Process (Protonix) 17:15 Communication Order ORDERS 07/05/25 Transmitted 17:02 RACHEL REILLY Jul 06, 2025 15:08
[2025-07-06] MEDS: D5W/SOD CHLO 0.9% 1,000 ML IV SCH (16:45)
--- NOTE | 2025-07-06 17:18 | DVHPNRES ---
Progress Note Date Seen: Jul 06, 2025 Resident Creating Document: DOT PERES RESIDENT Medical Necessity Reason Pt with a Central, PICC or Fol: No Subjective Review of Systems Wiliam Hudson Is a 65 year old male with past medical history of ulcerative colitis, prostate cancer, dyslipidemia, anxiety presented with complaints of explosive diarrhea with food, generalized weakness, fatigue, abdominal pain since past 3 months. He rated the pain atrial 10 in intensity, dull, nonradiating, increased pain after bowel movements. He says pain was associated with fever, chills, shortness of breath. Patient says that he has been trying to get treated for the ulcerative colitis for the past 3 months. The last colonoscopy was 3 years back. Patient reports that he has lost around 37 lb in 1.5 months. He says that the meds were not working, he is stopped taking them. He was referred to Alyssa Ruth from [facility]. He could not get an appointment until October. PMHx: ulcerative colitis, prostate cancer, dyslipidemia, anxiety PSHx: prostatectomy Family history: nonrelevant Social history: denies smoking, alcohol, drug use Home medication: tramadol, loperamide Allergic history: no known allergies General: patient denies fever, fatigue, weaknes, sweating, any recent changes in appetite and weight HEENT: No headaches, visiual changes, hearing loss, tinnitus, nasal congestion and discharge, and sore throat. Cardiovascular: Denies chest pain, palpitations, dyspnea on exertion, orthopnea, or claudication. Respiratory: No cough, and wheezing. Gastrointestinal: complains of abdominal pain, blood in stool Genitourinary: No dysuria, hematuria, discharge, frequency, urgency, nocturia, incontinence, and urinary retention. Endocrine: No heat or cold intolerance, polydipsia, polyuria, and polyphagia. Neurological: No dizziness, extremity weakness and numbness, tremors, gait disturbance, seizures, and memory impairment. Psychiatric: Denies depression, anxiety,or insomnia. Musculoskeletal: Denies neck pain, stiffness and swelling, back pain, muscle weakness, joint pain, stiffness, swelling, or limited range of motion. Skin: No rashes, itching, skin lesion, changes in hair, nail, skin texture and breast. Hematologic/Lymphatic: Denies easy bruising, bleeding tendencies, or lymph node enlargement. Objective vital signs Vital Sign Date Time Temp Pulse Resp B/P (MAP) Pulse Ox O2 Delivery O2 Flow Rate FiO2 07/06/25 13:00 97.9 92 19 118/73 (88) 97 97.9 07/06/25 08:00 Room Air* 0 21 Total Intake and Output 07/05/25 07/05/25 07/06/25 15:00 23:00 07:00 Intake Total 100 ml 200 ml Output Total 0 ml Balance 100 ml 200 ml medications Current Medications Medications Dose Ordered Sig/Savage Route Start Time Stop Time Status Last Admin Dose Admin Acetaminophen/ Hydrocodone Bitart 1 tab Q4HP PRN PO 07/05/25 12:00 07/06/25 16:52 1 TAB Ondansetron HCl 4 mg Q4HP PRN IV 07/05/25 12:00 Acetaminophen 650 mg Q6HP PRN PO 07/05/25 12:00 07/06/25 05:48 650 MG Morphine Sulfate 2 mg Q4HPRN PRN IV 07/05/25 12:00 Ceftriaxone Sodium 50 ml @ 100 mls/hr DAILY@09 IV 07/06/25 09:00 07/06/25 08:45 100 MLS/HR Metronidazole 100 ml @ 100 mls/hr Q8HR IV 07/05/25 22:00 07/06/25 14:07 100 MLS/HR Mesalamine 800 mg TID PO 07/05/25 22:00 07/06/25 14:07 800 MG Methylprednisolone Sodium Succinate 40 mg Q8HR IV 07/05/25 17:15 07/06/25 14:07 40 MG Dextrose/Sodium Chloride 1,000 ml @ 100 mls/hr Q10H IV 07/06/25 13:45 07/06/25 16:45 100 MLS/HR Pantoprazole Sodium 40 mg DAILY IV 07/07/25 10:00 Hydroxyzine Pamoate 25 mg DAILY PO 07/07/25 17:00 Examination General Appearance: Alert, Oriented X3, Cooperative, No acute distress HEENT: Atraumatic, PERRLA, EOMI, Mucous membrane moist/pink Respiratory: Clear to auscultation, Normal air movement Cardiovascular: Regular rate, Normal S1, Normal S2, No murmurs, no chest wall tenderness Abdominal: hypogastric tenderness Extremities: No clubbing, No cyanosis, No edema, Normal pulses, No tenderness/swelling Skin: No rashes, No breakdown, No significant lesion Neuro: Normal gait, Normal speech, Strength at 5/5 X4 ext, Normal tone, Sensation intact, Cranial nerves 3-12 NL, Reflexes 2+ Psych/Mental Status: Mental status NL, Mood NL laboratory and microbiology Laboratory Tests 07/06/25 04:50 Test 07/06/25 04:50 Range/Units Serum Glucose 159 H 74-106 mg/dL Microbiology Date/Time Source Procedure Growth Status 07/05/25 23:45 Stool Stool Culture - Preliminary Resulted 07/05/25 23:45 Stool Shiga Toxin I & II - Final Resulted 07/05/25 10:40 Blood Blood Culture - Preliminary NO GROWTH AFTER 24 HOURS OF INCUBATION. Resulted Problem List/Assessment/Plan Problem List/Assessment/Plan acute flare-up of ulcerative colitis sepsis due to above Ruled out C diff colitis GI consult IV steroids IV mesalamine Anemia likely normocytic due to chronic disease Moderate protein calorie malnutrition history of prostate cancer, on remission dyslipidemia Follow lipid levels Continue home medications Anxiety Continue home medication Plan discussed with: Patient My Orders My Orders Orders - DOT PERES RESIDENT Procedure Category Date Status Time Full Liq Diet DIET 07/06/25 Transmitted Dinner D5w/Sod Chlo 0.9% PHA 07/06/25 In Process (D5w Ns 0.9%) 13:45 Hydroxyzine Oral PHA 07/07/25 In Process (Vistaril Oral) 17:00 Complete Blood Count LAB 07/07/25 Verified 04:00 Comprehensive LAB 07/07/25 Verified Metabolic Panel 04:00 DOT PERES RESIDENT Jul 06, 2025 17:18
--- NOTE | 2025-07-06 17:26 | DVHPNRES ---
Progress Note Date Seen: Jul 06, 2025 Resident Creating Document: DOT PERES RESIDENT Medical Necessity Reason Pt with a Central, PICC or Fol: No Subjective Review of Systems Wiliam Hudson Is a 65 year old male with past medical history of ulcerative colitis, prostate cancer, dyslipidemia, anxiety presented with complaints of explosive diarrhea with food, generalized weakness, fatigue, abdominal pain since past 3 months. He rated the pain atrial 10 in intensity, dull, nonradiating, increased pain after bowel movements. He says pain was associated with fever, chills, shortness of breath. Patient says that he has been trying to get treated for the ulcerative colitis for the past 3 months. The last colonoscopy was 3 years back. Patient reports that he has lost around 37 lb in 1.5 months. He says that the meds were not working, he is stopped taking them. He was referred to Alyssa Ruth from [facility]. He could not get an appointment until October. PMHx: ulcerative colitis, prostate cancer, dyslipidemia, anxiety PSHx: prostatectomy Family history: nonrelevant Social history: denies smoking, alcohol, drug use Home medication: tramadol, loperamide Allergic history: no known allergies General: patient denies fever, fatigue, weaknes, sweating, any recent changes in appetite and weight HEENT: No headaches, visiual changes, hearing loss, tinnitus, nasal congestion and discharge, and sore throat. Cardiovascular: Denies chest pain, palpitations, dyspnea on exertion, orthopnea, or claudication. Respiratory: No cough, and wheezing. Gastrointestinal: complains of abdominal pain, blood in stool Genitourinary: No dysuria, hematuria, discharge, frequency, urgency, nocturia, incontinence, and urinary retention. Endocrine: No heat or cold intolerance, polydipsia, polyuria, and polyphagia. Neurological: No dizziness, extremity weakness and numbness, tremors, gait disturbance, seizures, and memory impairment. Psychiatric: Denies depression, anxiety,or insomnia. Musculoskeletal: Denies neck pain, stiffness and swelling, back pain, muscle weakness, joint pain, stiffness, swelling, or limited range of motion. Skin: No rashes, itching, skin lesion, changes in hair, nail, skin texture and breast. Hematologic/Lymphatic: Denies easy bruising, bleeding tendencies, or lymph node enlargement. Objective vital signs Vital Sign Date Time Temp Pulse Resp B/P (MAP) Pulse Ox O2 Delivery O2 Flow Rate FiO2 07/06/25 13:00 97.9 92 19 118/73 (88) 97 97.9 07/06/25 08:00 Room Air* 0 21 Total Intake and Output 07/05/25 07/05/25 07/06/25 15:00 23:00 07:00 Intake Total 100 ml 200 ml Output Total 0 ml Balance 100 ml 200 ml medications Current Medications Medications Dose Ordered Sig/Savage Route Start Time Stop Time Status Last Admin Dose Admin Acetaminophen/ Hydrocodone Bitart 1 tab Q4HP PRN PO 07/05/25 12:00 07/06/25 16:52 1 TAB Ondansetron HCl 4 mg Q4HP PRN IV 07/05/25 12:00 Acetaminophen 650 mg Q6HP PRN PO 07/05/25 12:00 07/06/25 05:48 650 MG Morphine Sulfate 2 mg Q4HPRN PRN IV 07/05/25 12:00 Ceftriaxone Sodium 50 ml @ 100 mls/hr DAILY@09 IV 07/06/25 09:00 07/06/25 08:45 100 MLS/HR Metronidazole 100 ml @ 100 mls/hr Q8HR IV 07/05/25 22:00 07/06/25 14:07 100 MLS/HR Mesalamine 800 mg TID PO 07/05/25 22:00 07/06/25 14:07 800 MG Methylprednisolone Sodium Succinate 40 mg Q8HR IV 07/05/25 17:15 07/06/25 14:07 40 MG Dextrose/Sodium Chloride 1,000 ml @ 100 mls/hr Q10H IV 07/06/25 13:45 07/06/25 16:45 100 MLS/HR Pantoprazole Sodium 40 mg DAILY IV 07/07/25 10:00 Hydroxyzine Pamoate 25 mg DAILY PO 07/07/25 17:00 Examination General Appearance: Alert, Oriented X3, Cooperative, No acute distress HEENT: Atraumatic, PERRLA, EOMI, Mucous membrane moist/pink Respiratory: Clear to auscultation, Normal air movement Cardiovascular: Regular rate, Normal S1, Normal S2, No murmurs, no chest wall tenderness Abdominal: hypogastric tenderness Extremities: No clubbing, No cyanosis, No edema, Normal pulses, No tenderness/swelling Skin: No rashes, No breakdown, No significant lesion Neuro: Normal gait, Normal speech, Strength at 5/5 X4 ext, Normal tone, Sensation intact, Cranial nerves 3-12 NL, Reflexes 2+ Psych/Mental Status: Mental status NL, Mood NL laboratory and microbiology Laboratory Tests 07/06/25 04:50 Test 07/06/25 04:50 Range/Units Serum Glucose 159 H 74-106 mg/dL Microbiology Date/Time Source Procedure Growth Status 07/05/25 23:45 Stool Stool Culture - Preliminary Resulted 07/05/25 23:45 Stool Shiga Toxin I & II - Final Resulted 07/05/25 10:40 Blood Blood Culture - Preliminary NO GROWTH AFTER 24 HOURS OF INCUBATION. Resulted Problem List/Assessment/Plan Problem List/Assessment/Plan Assessment and plan acute flare-up of ulcerative colitis sepsis due to above Ruled out C diff colitis GI consult IV steroids IV mesalamine pain management Anemia likely normocytic due to chronic disease follow up with PCP on discharge Moderate protein calorie malnutrition full liquid diet for now will advance as tolerated history of prostate cancer, on remission follow up with PCP on discharge dyslipidemia Follow lipid levels Continue home medications Anxiety Continue home medication DIET: Full liquid diet, advance as tolerated DVT PROPHYLAXIS: Patient ambulatory GI PROPHYLAXIS:: Protonix CODE STATUS: full code DISPOSITION: Med/surge Patient's status and plan discussed with the patient. Case discussed with Dr. Delcid Plan discussed with: Patient My Orders My Orders Orders - DOT PERES Procedure Category Date Status Time Full Liq Diet DIET 07/06/25 Transmitted Dinner D5w/Sod Chlo 0.9% PHA 07/06/25 In Process (D5w Ns 0.9%) 13:45 Hydroxyzine Oral PHA 07/07/25 In Process (Vistaril Oral) 17:00 Complete Blood Count LAB 07/07/25 Verified 04:00 Comprehensive LAB 07/07/25 Verified Metabolic Panel 04:00 Date of Service: Jul 06, 2025 Billing Provider: ARY RODRIGUEZ MD Common Visit Codes: [id number] INP/OBS CARE(HIGH) DOT PERES Jul 06, 2025 17:26
[2025-07-06] MEDS: hydrOXYzine 25 MG TAB or CAP PO ONE (20:59)
[2025-07-07] VITALS (8 sets, daily range): BP systolic 96–103; BP diastolic 62–69; PULSE 64–78; RESP 16–20; TEMP 97.4–98.2; O2SAT 95–97
[2025-07-07 05:24] LABS: Nucleated Red Blood Cells % 0.1 %
[2025-07-07 05:28] LABS: Hematocrit 25.5 % (41.0-53.0); Hemoglobin 8.8 g/dL (13.5-17.5); Mean Corpuscular Hemoglobin 30.2 pg (28.0-32.0); Mean Corpuscular Volume 87.9 fL (80.0-100.0)
[2025-07-07 05:38] LABS: Alanine Aminotransferase 11 U/L (7-40); Alkaline Phosphatase 54 U/L (46-116); Anion Gap 6 (5-15); BUN/Creatinine Ratio 8.5 (10.0-20.0); Carbon Dioxide 27 mmol/L (20-31); Chloride 105 mmol/L (98-107); Potassium 4.4 mmol/L (3.5-5.1); Sodium 138 mmol/L (136-145)
[2025-07-07 05:43] LABS: Albumin 2.8 g/dL (3.2-4.8); Bilirubin, Total 0.2 mg/dL (0.2-1.0); Blood Urea Nitrogen 7 mg/dL (9-23); Calcium 7.9 mg/dL (8.7-10.4); Glucose 171 mg/dL (74-106); Total Protein 5.5 g/dL (5.7-8.2)
[2025-07-07] MEDS: PANTOPRAZOLE 40 MG/10 ML VIAL INJ IV SCH (10:06)
--- NOTE | 2025-07-07 14:32 | DVHPNRES ---
Progress Note Date Seen: Jul 07, 2025 Resident Creating Document: DOT PERES RESIDENT Medical Necessity Reason Pt with a Central, PICC or Fol: No Subjective Review of Systems Patient was seen at bedside. No new complaints. Patient reports that the abdominal pain and the bloody diarrhea has come down. Wiliam Hudson Is a 65 year old male with past medical history of ulcerative colitis, prostate cancer, dyslipidemia, anxiety presented with complaints of explosive diarrhea with food, generalized weakness, fatigue, abdominal pain since past 3 months. He rated the pain atrial 10 in intensity, dull, nonradiating, increased pain after bowel movements. He says pain was associated with fever, chills, shortness of breath. Patient says that he has been trying to get treated for the ulcerative colitis for the past 3 months. The last colonoscopy was 3 years back. Patient reports that he has lost around 37 lb in 1.5 months. He says that the meds were not working, he stopped taking them. He was referred to Alyssa Ruth from [facility]. He could not get an appointment until October. PMHx: ulcerative colitis, prostate cancer, dyslipidemia, anxiety PSHx: prostatectomy Family history: nonrelevant Social history: denies smoking, alcohol, drug use Home medication: tramadol, loperamide Allergic history: no known allergies General: patient denies fever, fatigue, weaknes, sweating, any recent changes in appetite and weight HEENT: No headaches, visiual changes, hearing loss, tinnitus, nasal congestion and discharge, and sore throat. Cardiovascular: Denies chest pain, palpitations, dyspnea on exertion, orthopnea, or claudication. Respiratory: No cough, and wheezing. Gastrointestinal: complains of abdominal pain, blood in stool Genitourinary: No dysuria, hematuria, discharge, frequency, urgency, nocturia, incontinence, and urinary retention. Endocrine: No heat or cold intolerance, polydipsia, polyuria, and polyphagia. Neurological: No dizziness, extremity weakness and numbness, tremors, gait disturbance, seizures, and memory impairment. Psychiatric: Denies depression, anxiety,or insomnia. Musculoskeletal: Denies neck pain, stiffness and swelling, back pain, muscle weakness, joint pain, stiffness, swelling, or limited range of motion. Skin: No rashes, itching, skin lesion, changes in hair, nail, skin texture and breast. Hematologic/Lymphatic: Denies easy bruising, bleeding tendencies, or lymph node enlargement. Objective vital signs Vital Sign Date Time Temp Pulse Resp B/P (MAP) Pulse Ox O2 Delivery O2 Flow Rate FiO2 07/07/25 12:32 98.2 78 17 98/65 (76) 96 98.2 07/07/25 08:00 Room Air* 0 21 Total Intake and Output 07/06/25 07/06/25 07/07/25 15:00 23:00 07:00 Intake Total 803 ml 600 ml Balance 803 ml 600 ml medications Current Medications Medications Dose Ordered Sig/Savage Route Start Time Stop Time Status Last Admin Dose Admin Acetaminophen/ Hydrocodone Bitart 1 tab Q4HP PRN PO 07/05/25 12:00 07/07/25 05:36 1 TAB Ondansetron HCl 4 mg Q4HP PRN IV 07/05/25 12:00 Acetaminophen 650 mg Q6HP PRN PO 07/05/25 12:00 07/06/25 05:48 650 MG Morphine Sulfate 2 mg Q4HPRN PRN IV 07/05/25 12:00 Ceftriaxone Sodium 50 ml @ 100 mls/hr DAILY@09 IV 07/06/25 09:00 07/07/25 10:49 100 MLS/HR Metronidazole 100 ml @ 100 mls/hr Q8HR IV 07/05/25 22:00 07/07/25 14:04 100 MLS/HR Mesalamine 800 mg TID PO 07/05/25 22:00 07/07/25 14:05 800 MG Dextrose/Sodium Chloride 1,000 ml @ 100 mls/hr Q10H IV 07/06/25 13:45 07/06/25 23:45 100 MLS/HR Pantoprazole Sodium 40 mg DAILY IV 07/07/25 10:00 07/07/25 10:06 40 MG Hydroxyzine Pamoate 25 mg DAILY PO 07/07/25 17:00 Methylprednisolone Sodium Succinate 20 mg Q8HR IV 07/07/25 14:00 Examination General Appearance: Alert, Oriented X3, Cooperative, No acute distress HEENT: Atraumatic, PERRLA, EOMI, Mucous membrane moist/pink Respiratory: Clear to auscultation, Normal air movement Cardiovascular: Regular rate, Normal S1, Normal S2, No murmurs, no chest wall tenderness Abdominal: hypogastric tenderness Extremities: No clubbing, No cyanosis, No edema, Normal pulses, No tenderness/swelling Skin: No rashes, No breakdown, No significant lesion Neuro: Normal gait, Normal speech, Strength at 5/5 X4 ext, Normal tone, Sensation intact, Cranial nerves 3-12 NL, Reflexes 2+ Psych/Mental Status: Mental status NL, Mood NL laboratory and microbiology Laboratory Tests 07/07/25 04:41 Test 07/07/25 04:41 Range/Units Serum Glucose 171 H 74-106 mg/dL Microbiology Date/Time Source Procedure Growth Status 07/05/25 23:45 Stool Stool Culture - Preliminary Resulted 07/05/25 23:45 Stool Shiga Toxin I & II - Final Resulted 07/05/25 10:40 Blood Blood Culture - Preliminary NO GROWTH AFTER 48 HOURS OF INCUBATION. Resulted Problem List/Assessment/Plan Problem List/Assessment/Plan Assessment and plan acute flare-up of ulcerative colitis sepsis due to above Ruled out C diff colitis GI consult IV steroids IV mesalamine pain management Anemia likely normocytic due to chronic disease follow up with PCP on discharge Moderate protein calorie malnutrition full liquid diet for now will advance as tolerated history of prostate cancer, on remission follow up with PCP on discharge dyslipidemia Follow lipid levels Continue home medications Anxiety Continue home medication DIET: Full liquid diet, advance as tolerated DVT PROPHYLAXIS: Patient ambulatory GI PROPHYLAXIS:: Protonix CODE STATUS: full code DISPOSITION: Med/surge Patient's status and plan discussed with the patient. Case discussed with Dr. Delcid Plan discussed with: Patient My Orders My Orders Orders - DOT PERES Procedure Category Date Status Time Hydroxyzine Oral PHA 07/07/25 In Process (Vistaril Oral) 17:00 Date of Service: Jul 07, 2025 Billing Provider: ARY RODRIGUEZ MD Common Visit Codes: [id number] INP/OBS CARE(HIGH) DOT PERES Jul 07, 2025 14:32
[2025-07-07] MEDS: methylPREDNISolone SOD SUCC 40 MG/ML VL IV SCH (14:52)
--- NOTE | 2025-07-07 14:54 | DVHPN2 ---
Progress Note Date Seen: Jul 07, 2025 Resident Creating Document: RACHEL REILLY RESIDENT Medical Necessity Reason Pt with a Central, PICC or Fol: No Subjective Review of Systems 65-year-old male with ulcerative colitis presented to the ED with a chief complaint of bloody stool for the past 1 month. Patient reports that he has been experiencing fresh red bloody diarrhea for the past 1 month, 10-20 episodes a day, and that he has to go to the bathroom whenever he eats or drinks anything. He reports 40 lb weight loss in the past month. Associated symptoms include fever, chills, night sweats. Reports right-sided abdominal pain. Also reports internal hemorrhoids. Patient used to see Dr. Serrano, but right now has no life consultant. Patient has a appointment with Alyssa Ruth next year. Last colonoscopy 3 years back 07/05 - Patient seen and examined. Right lower quadrant tenderness. 07/06-patient seen and examined, reports feeling better, 3 episodes of loose watery stools, blood at the end of the stool. WBC trending down. 07/07 - patient feeling better, 5 bowel movements, resend C diff sample Objective vital signs Vital Sign Date Time Temp Pulse Resp B/P (MAP) Pulse Ox O2 Delivery O2 Flow Rate FiO2 07/07/25 12:32 98.2 78 17 98/65 (76) 96 98.2 07/07/25 08:00 Room Air* 0 21 Total Intake and Output 07/06/25 07/06/25 07/07/25 15:00 23:00 07:00 Intake Total 803 ml 600 ml Balance 803 ml 600 ml medications Current Medications Medications Dose Ordered Sig/Savage Route Start Time Stop Time Status Last Admin Dose Admin Acetaminophen/ Hydrocodone Bitart 1 tab Q4HP PRN PO 07/05/25 12:00 07/07/25 05:36 1 TAB Ondansetron HCl 4 mg Q4HP PRN IV 07/05/25 12:00 Acetaminophen 650 mg Q6HP PRN PO 07/05/25 12:00 07/06/25 05:48 650 MG Morphine Sulfate 2 mg Q4HPRN PRN IV 07/05/25 12:00 Ceftriaxone Sodium 50 ml @ 100 mls/hr DAILY@09 IV 07/06/25 09:00 07/07/25 10:49 100 MLS/HR Metronidazole 100 ml @ 100 mls/hr Q8HR IV 07/05/25 22:00 07/07/25 14:04 100 MLS/HR Mesalamine 800 mg TID PO 07/05/25 22:00 07/07/25 14:05 800 MG Dextrose/Sodium Chloride 1,000 ml @ 100 mls/hr Q10H IV 07/06/25 13:45 07/06/25 23:45 100 MLS/HR Pantoprazole Sodium 40 mg DAILY IV 07/07/25 10:00 07/07/25 10:06 40 MG Hydroxyzine Pamoate 25 mg DAILY PO 07/07/25 17:00 Methylprednisolone Sodium Succinate 20 mg Q8HR IV 07/07/25 14:00 Examination Patient lying in bed, in mild distress General: Sick appearing, afebrile, palor, mucosae are moist Cardiovascular: Regular S1 and S2. No murmurs, gallops or rubs. No JVD elevation. No pedal edema Respiratory: Normal B/L air entry on room air. Clear lung sounds on auscultation Abdomen: Soft, right lower tenderness, nondistended, normoactive bowel sounds, no rebound tenderness, no organomegaly, no masses Genitourinary: Deferred MSK/skin: Mobilizes 4 limbs. Skin is dry and warm Neurological: No motor, no sensitive deficits, normal speech. Pupils are isocoric and reactive. Psych/Mental Status: A/Ox3 laboratory and microbiology Laboratory Tests 07/07/25 04:41 Test 07/07/25 04:41 Range/Units Serum Glucose 171 H 74-106 mg/dL Microbiology Date/Time Source Procedure Growth Status 07/05/25 23:45 Stool Stool Culture - Preliminary Resulted 07/05/25 23:45 Stool Shiga Toxin I & II - Final Resulted 07/05/25 10:40 Blood Blood Culture - Preliminary NO GROWTH AFTER 48 HOURS OF INCUBATION. Resulted Labs and/or images reviewed: Labs reviewed by me, Image(s) reviewed by me Problem List/Assessment/Plan Problem List/Assessment/Plan Acute ulcerative colitis flare-up Likely superimposed infection Sepsis secondary to above Anemia likely normocytic due to chronic disease Ruled out C diff colitis Moderate protein calorie malnutrition Plan: Diet advanced to clear liquids, advanced slowly as tolerated. Given the acute colitis, we recommend ruling out C diff. continue IV ceftriaxone and metronidazole, IV fluids Stool WBC positive. Stool occult positive. Repeat stool for C diff, Stool Culture negative CRP trending down Patient will benefit from colonoscopy as outpatient once the acute phase passes Started mesalamine 800 mg PO TID Started Solu-Medrol 40 mg Q 8 hourly Strict I&Os and pantoprazole 40 mg IV We will continue to follow up Thank you for consulting GI Plan discussed with patient in which all questions have been answered Case discussed with Dr. Harper Plan discussed with: Patient My Orders My Orders Orders - RACHEL REILLY Procedure Category Date Status Time Pantoprazole PHA 07/07/25 In Process (Protonix) 10:00 RACHEL REILLY Jul 07, 2025 14:54
[2025-07-07] MEDS: hydrOXYzine 25 MG TAB or CAP PO SCH (17:22)
[2025-07-07] MEDS: SODIUM CHLORIDE 0.9% 1,000 ML IV ONE (17:23)
[2025-07-07 18:39] LABS: Urine Protein, UAD Negative (Negative)
[2025-07-08 01:00] VITALS: BP 91/61; PULSE 63; RESP 20; TEMP 98.2; O2SAT 98
[2025-07-08 05:04] LABS: Hemoglobin 8.6 g/dL (13.5-17.5); Nucleated Red Blood Cells % 0.1 %
[2025-07-08 05:07] LABS: Hematocrit 25.2 % (41.0-53.0); Mean Corpuscular Hemoglobin 30.1 pg (28.0-32.0); Mean Corpuscular Volume 88.3 fL (80.0-100.0)
[2025-07-08 05:17] VITALS: BP 101/69; PULSE 60; RESP 20; TEMP 98; O2SAT 95
[2025-07-08 05:22] LABS: Alanine Aminotransferase 10 U/L (7-40); Alkaline Phosphatase 53 U/L (46-116); Anion Gap 7 (5-15); BUN/Creatinine Ratio 14.7 (10.0-20.0); Blood Urea Nitrogen 10 mg/dL (9-23); Carbon Dioxide 28 mmol/L (20-31); Chloride 104 mmol/L (98-107); Potassium 4.5 mmol/L (3.5-5.1); Sodium 139 mmol/L (136-145)
[2025-07-08 05:34] LABS: Albumin 2.8 g/dL (3.2-4.8); Bilirubin, Total 0.2 mg/dL (0.2-1.0); Calcium 7.9 mg/dL (8.7-10.4); Glucose 135 mg/dL (74-106); Total Protein 5.5 g/dL (5.7-8.2)
[2025-07-08 08:00] VITALS: RESP 16
[2025-07-08 09:00] VITALS: BP 102/63; PULSE 55; RESP 16; TEMP 97.8; O2SAT 95
--- NOTE | 2025-07-08 11:02 | DVHPN2 ---
Progress Note Date Seen: Jul 08, 2025 Resident Creating Document: RACHEL REILLY RESIDENT Medical Necessity Reason Pt with a Central, PICC or Fol: No Subjective Review of Systems 65-year-old male with ulcerative colitis presented to the ED with a chief complaint of bloody stool for the past 1 month. Patient reports that he has been experiencing fresh red bloody diarrhea for the past 1 month, 10-20 episodes a day, and that he has to go to the bathroom whenever he eats or drinks anything. He reports 40 lb weight loss in the past month. Associated symptoms include fever, chills, night sweats. Reports right-sided abdominal pain. Also reports internal hemorrhoids. Patient used to see Dr. 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 Patient has a appointment with Alyssa Ruth next year. Last colonoscopy 3 years back 07/05 - Patient seen and examined. Right lower quadrant tenderness. 07/06-patient seen and examined, reports feeling better, 3 episodes of loose watery stools, blood at the end of the stool. WBC trending down. 07/07 - patient feeling better, 5 bowel movements, resend C diff sample 07/08-patient seen and examined. Diarrhea resolving. Objective vital signs Vital Sign Date Time Temp Pulse Resp B/P (MAP) Pulse Ox O2 Delivery O2 Flow Rate FiO2 07/08/25 09:00 97.8 55 16 102/63 (76) 95 97.8 07/07/25 20:00 Room Air* 0 21 Total Intake and Output 07/07/25 07/07/25 07/08/25 15:00 23:00 07:00 Intake Total 404 ml 1580 ml 650 ml Output Total 500 ml Balance 404 ml 1080 ml 650 ml medications Current Medications Medications Dose Ordered Sig/Svaage Route Start Time Stop Time Status Last Admin Dose Admin Acetaminophen/ Hydrocodone Bitart 1 tab Q4HP PRN PO 07/05/25 12:00 07/08/25 03:59 1 TAB Ondansetron HCl 4 mg Q4HP PRN IV 07/05/25 12:00 Acetaminophen 650 mg Q6HP PRN PO 07/05/25 12:00 07/06/25 05:48 650 MG Morphine Sulfate 2 mg Q4HPRN PRN IV 07/05/25 12:00 Mesalamine 800 mg TID PO 07/05/25 22:00 07/08/25 05:24 800 MG Dextrose/Sodium Chloride 1,000 ml @ 100 mls/hr Q10H IV 07/06/25 13:45 07/08/25 05:24 100 MLS/HR Pantoprazole Sodium 40 mg DAILY IV 07/07/25 10:00 07/08/25 09:58 40 MG Hydroxyzine Pamoate 25 mg DAILY PO 07/07/25 17:00 07/08/25 09:58 25 MG Methylprednisolone Sodium Succinate 20 mg Q8HR IV 07/07/25 14:00 07/07/25 21:50 20 MG Examination Patient lying in bed, in mild distress General: Sick appearing, afebrile, palor, mucosae are moist Cardiovascular: Regular S1 and S2. No murmurs, gallops or rubs. No JVD elevation. No pedal edema Respiratory: Normal B/L air entry on room air. Clear lung sounds on auscultation Abdomen: Soft, right lower tenderness, nondistended, normoactive bowel sounds, no rebound tenderness, no organomegaly, no masses Genitourinary: Deferred MSK/skin: Mobilizes 4 limbs. Skin is dry and warm Neurological: No motor, no sensitive deficits, normal speech. Pupils are isocoric and reactive. Psych/Mental Status: A/Ox3 laboratory and microbiology Laboratory Tests 07/08/25 04:30 Test 07/08/25 04:30 Range/Units Serum Glucose 135 H 74-106 mg/dL Microbiology Date/Time Source Procedure Growth Status 07/05/25 23:45 Stool Stool Culture - Preliminary Resulted 07/05/25 23:45 Stool Shiga Toxin I & II - Final Resulted 07/05/25 10:40 Blood Blood Culture - Preliminary NO GROWTH AFTER 72 HOURS OF INCUBATION. Resulted Labs and/or images reviewed: Labs reviewed by me, Image(s) reviewed by me Problem List/Assessment/Plan Problem List/Assessment/Plan Acute ulcerative colitis flare-up Likely superimposed infection Sepsis secondary to above Anemia likely normocytic due to chronic disease Ruled out C diff colitis Moderate protein calorie malnutrition Plan: Continue soft/pureed diet. Given the acute colitis, we recommend ruling out C diff. continue IV ceftriaxone and metronidazole, IV fluids Stool WBC positive. Stool occult positive. Repeat stool for C diff, Stool Culture negative CRP trending down Patient will benefit from colonoscopy as outpatient once the acute phase passes Started mesalamine 800 mg PO TID Started Solu-Medrol 40 mg daily Strict I&Os and pantoprazole 40 mg IV We will continue to follow up Thank you for consulting GI Plan discussed with patient in which all questions have been answered Case discussed with Dr. Harper Plan discussed with: Patient RACHEL REILLY RESIDENT Jul 08, 2025 11:02
[2025-07-08 12:21] VITALS: BP 110/74; PULSE 60; RESP 18; TEMP 98.4; O2SAT 96
--- NOTE | 2025-07-08 13:43 | DVHDSRES ---
Discharge Summary Date of Admission Resident Creating Document: DOT PERES RESIDENT Jul 05, 2025 at 11:58 Date of Discharge: Jul 08, 2025 Labs/Diagnostic Data: Laboratory Results Test 07/08/25 04:30 07/07/25 18:20 07/07/25 04:41 07/05/25 23:45 White Blood Count 9.4 10^3/uL (4.4-10.8) Red Blood Count 2.86 10^6/uL (4.5-5.90) Hemoglobin 8.6 g/dL (13.5-17.5) Hematocrit 25.2 % (41.0-53.0) Mean Corpuscular Volume 88.3 fL (80.0-100.0) Mean Corpuscular Hemoglobin 30.1 pg (28.0-32.0) Mean Corpuscular Hemoglobin Concent 34.1 g/dL (32.0-36.0) Red Cell Distribution Width 14.5 % (11.8-14.3) Platelet Count 575 10^3/uL (140-450) Mean Platelet Volume 6.2 fL (6.9-10.8) Neutrophils (%) (Auto) 77.8 % (37.0-80.0) Lymphocytes (%) (Auto) 11.0 % (10.0-50.0) Monocytes (%) (Auto) 11.2 % (0.0-12.0) Eosinophils (%) (Auto) 0.0 % (0.0-7.0) Basophils (%) (Auto) 0.0 % (0.0-2.0) Neutrophils # (Auto) 7.3 10 ^3/uL (1.6-8.6) Lymphocytes # (Auto) 1.0 10 ^3/uL (0.4-5.4) Monocytes # (Auto) 1.1 10 ^3/uL (0-1.3) Eosinophils # (Auto) 0 10 ^3/uL (0-0.8) Basophils # (Auto) 0 10 ^3/uL (0-0.2) Nucleated Red Blood Cells 0.1 % Sodium Level 139 mmol/L (136-145) Potassium Level 4.5 mmol/L (3.5-5.1) Chloride Level 104 mmol/L (98-107) Carbon Dioxide Level 28 mmol/L (20-31) Anion Gap 7 (5-15) Blood Urea Nitrogen 10 mg/dL (9-23) Creatinine 0.68 mg/dL (0.700-1.30) Glomerular Filtration Rate Calc 104 mL/min (>90) BUN/Creatinine Ratio 14.7 (10.0-20.0) Serum Glucose 135 mg/dL (74-106) Calcium Level 7.9 mg/dL (8.7-10.4) Total Bilirubin 0.2 mg/dL (0.2-1.0) Aspartate Amino Transferase (AST) 10 U/L (13-40) Alanine Aminotransferase (ALT) 10 U/L (7-40) Alkaline Phosphatase 53 U/L (46-116) Total Protein 5.5 g/dL (5.7-8.2) Albumin 2.8 g/dL (3.2-4.8) Urine Color Light-orange (Yellow) Urine Clarity Clear (Clear) Urine pH 6.0 (5.0-9.0) Urine Specific [place] 1.022 (1.001-1.035) Urine Protein Negative (Negative) Urine Ketones Negative (Negative) Urine Blood Negative /uL (Negative) Urine Nitrite Negative (Negative) Urine Bilirubin Negative (Negative) Urine Urobilinogen Normal mg/dL (Negative) Urine Leukocyte Esterase Negative /uL (Negative) Urine RBC None seen /hpf (0 - 3) Urine Microscopic WBC 1 /HPF (0-3) Urine Squamous Epithelial Cells None seen /hpf (<5) Urine Bacteria None seen /hpf (None Seen) Urine Glucose Normal mg/dL (Normal) Hemoglobin A1c 5.3 % A1C (<5.7) C-Reactive Protein High Sensitivity 6.30 mg/dL (<1.0) Stool Occult Blood Positive (Negative) Stool Occult Blood Sample #3 (Negative) Stool for White Cells Many Test 07/05/25 10:40 07/05/25 07:36 Tumor Marker Alpha Fetoprotein <1.8 ng/mL (0.0-8.4) CA 19-9 Antigen 6 U/mL (0-35) Erythrocyte Sedimentation Rate 65 mm/hr (0-20) Lactic Acid Level 1.2 mmol/L (0.4-2.0) Direct Bilirubin 0.1 mg/dL (<0.3) Carcinoembryonic Antigen < 0.50 ng/mL (<=5.0) Other Laboratory Tests 07/08/25 04:30 Brief Hx & Hospital Course: Wiliam Hudson Is a 65 year old male with past medical history of ulcerative colitis, prostate cancer, dyslipidemia, anxiety presented with complaints of explosive diarrhea with food, generalized weakness, fatigue, abdominal pain since past 3 months. He rated the pain atrial 10 in intensity, dull, nonradiating, increased pain after bowel movements. He says pain was associated with fever, chills, shortness of breath. Patient says that he has been trying to get treated for the ulcerative colitis for the past 3 months. The last colonoscopy was 3 years back. Patient reports that he has lost around 37 lb in 1.5 months. He says that the meds were not working, he stopped taking them. He was referred to Alyssa Ruth from [facility]. He could not get an appointment until October. CT abdomen revealed findings consistent with colitis.ated with iv solumedrol and mesalamine. The diarrhea and abdominal pain was better and the patient was able to keep foods down and hence being discharged from the hospital. Patient advised to follow up with GI as outpatient for colonoscopy and further management and care. Discharge Plan F/u with PCP in 7 days F/u with GI in 7 days F/u with PCP for Left adrenal nodule, CT chest and para aortic lymph nodes. Prednisone 60mg for 1 week, 50mg for week 2, 40mg for week 3 and 30mg for week 4, decrease the dose by 2.5 mg every week from then on Continue other home medications Condition at Discharge: Fair Final Diagnosis/Problems List acute flare-up of ulcerative colitis sepsis due to above Anemia normocytic likely due to chronic disease Moderate protein calorie malnutrition historyof prostate cancer, on remission Ruled out C diff colitis dyslipidemia Anxiety Adrenal nodule, type undetermined Discharge Disposition: Home Discharge Instruct/Medications Diet: Regular Activity: No Restrictions, As Tolerated Follow Up/Referral: F/u with PCP in 7 days F/u with GI in 7 days F/u with PCP for Left adrenal nodule, CT chest and para aortic lymph nodes. Prednisone 60mg for 1 week, 50mg for week 2, 40mg for week 3 and 30mg for week 4, decrease the dose by 2.5 mg every week from then on Continue other home medications Medications: as per EHR Scheduled Budesonide (Budesonide), 3 MG PO DAILY, (Reported) Cholecalciferol (Vitamin D-3 Super Strengt), 1 TAB PO DAILY, (Reported) Dicyclomine Hcl (Dicyclomine Hcl), 20 MG PO TID, (Reported) Fenofibrate (Fenofibrate), 1 TAB PO HS, (Reported) Hydroxyzine Hcl (Hydroxyzine Hcl), 1 TAB PO DAILY, (Reported) Hydroxyzine Hcl (Hydroxyzine Hcl), 25 MG PO DAILY, (Reported) Lorazepam (Ativan Tablet), 1 TAB PO DAILYPRN, (Reported) Mesalamine (Lialda), 1.2 GM PO BID, (Reported) Prednisone (Prednisone), 1 TAB PO DAILY, (Reported) Tofacitinib Citrate (Xeljanz), 10 MG PO BID, (Reported) Scheduled PRN Lorazepam (Ativan Tablet), 1 TAB PO DAILYPRN PRN for anxiety, (Reported) Miscellaneous Medications Albuterol Sulfate (Albuterol Sulfate Hfa), 1-2 PUFF PO, (Reported) Discharge Statement: "Patient was advised to return to the ER or call 911 if any headaches, dizziness, shortness of breath, chest pain, abdominal pain, bleeding, fevers, or worsening of medical condition. Patient was counseled about treatment plan, medications, possible side effects, patientverbalized understanding. All questions were answered to the best of my ability. This discharge took greater then 30 minutes in planning, reviewing documentation, counseling the patient, and discussing with other team members." ASSESSMENT ASSESSMENT Assessment Acute Flare up of ulcerative colitis Date of Service: Jul 08, 2025 Billing Provider: ARY RODRIGUEZ MD Common Visit Codes: 72456-LZF/OBS DISCH DAY >30min DOT PERES Jul 08, 2025 13:43
[2025-07-08 15:17] VITALS: TEMP 36.9
[2025-07-08] MEDS ORDERED: PRED20TA2 PO (16:05)
[2025-07-08] MEDS ORDERED: MESA1.2T PO (16:05)
== END 2025-07-08 16:15 | disposition home or self-care (01) | DRG 720 ==
LOC: ER 06:54 → OVERFLOW 11:58 → EAST 21:58
PROVIDERS: ADMIT Student in an Organized Health Care Education/Training Program; ATTEND Student in an Organized Health Care Education/Training Program
DX: A41.9 Sepsis, unspecified organism (principal); E44.0 Moderate protein-calorie malnutrition; D63.8 Anemia in other chronic diseases classified elsewhere; K51.911 Ulcerative colitis, unspecified with rectal bleeding; E27.8 Other specified disorders of adrenal gland; R59.9 Enlarged lymph nodes, unspecified; E78.5 Hyperlipidemia, unspecified; F41.9 Anxiety disorder, unspecified; Z85.46 Personal history of malignant neoplasm of prostate; Z68.24 Body mass index [BMI] 24.0-24.9, adult
CPT/HCPCS: 36415; 74177; 80048; 80053; 80076; 81001; 82105; 82270; 82378; 83036; 83605; 85025; 85048; 85652; 86141; 86301; 87040; 87045; 87177; 87427; 87493; 96365; 96375; 99291; G0378; J2470; J3490; J7042